=== PATIENT | female | born 1970 ===

== ENCOUNTER 2020-06-27 08:21 | Emergency (ER) | payer OTHER, SELFPAY ==
[2020-06-27 08:40] VITALS: BP 109/74; PULSE 74; RESP 16; TEMP 36.5; O2SAT 99
--- NOTE | 2020-06-27 08:57 | ED.GENADULT ---
HPI - General Adult General Chief complaint: Upper Respiratory Infection Stated complaint: poss sinus infection Time Seen by Provider: 06/27/20 08:57 Source: patient Mode of arrival: ambulatory Limitations: no limitations History of Present Illness HPI narrative: 49-year-old female patient presents to the [facility] with complaints of cold symptoms for the past 2 days. Patient states she has been running a fever but did not get higher than 100. Patient states she has also had some nasal congestion and some sinus pressure under her eyes. Denies any ear pain, body aches or chills. Denies any cough pains, sore throat, chest pain or shortness of breath. 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 Related Data Home Medications Medication Instructions Recorded Confirmed secukinumab [Cosentyx] 300 mg SUBCUT WEEKLY 06/27/20 06/27/20 Allergies Allergy/AdvReac Type Severity Reaction Status Date / Time No Known Allergies Allergy Mild Verified 06/27/20 08:43 Review of Systems Review of Systems: Narrative: CONSTITUTIONAL: Positive fever, denies chills, or sweats. EYES: Denies visual changes, redness, or discharge. ENT: Denies rhinorrhea, positive congestion, denies sore throat, or otalgia. CARDIOVASCULAR: Denies chest pain, palpitations, or edema. RESPIRATORY: Denies cough or dyspnea. GASTROINTESTINAL: Denies abdominal pain, nausea, vomiting, or diarrhea. GENITOURINARY: Denies dysuria or hematuria. SKIN: Denies rash or itching. MUSCULOSKELETAL: Denies back pain, joint pain, or myalgia. NEUROLOGIC: Denies headache, numbness, or weakness. PSYCHIATRIC: Denies anxiety or depression. [facility] Past Medical History Medical History (Updated 06/27/20 @ 09:12 by CLAUDIA Fernandez) Musculoskeletal disorder Knee laparoscopy age 14 Psoriasis Surgical History Surgical History (Updated 06/27/20 @ 08:58 by CLAUDIA Fernandez) H/O: hysterectomy Social History Social History Gender identity (if verbalized by the patient): Female Comments At the time of my signature I agree with nursing past medical history, surgical, social, and family history. There is no relevant family history pertinent to the presenting complaint. Exam Narrative: Exam Narrative: GENERAL: Well-appearing, well-nourished, and in no acute distress. HEAD: Normocephalic, atraumatic. Tenderness noted to maxillary sinuses on palpation EYES: PERRLA and EOMI. ENT: Nares with erythema and edema noted bilaterally, patent, no rhinorrhea or epistaxis. Mucous membranes moist. Posterior pharynx with no erythema, tonsillar injury, exudates or lesions present. Bilateral TMs do have a little bit of fluid behind them and the canals are very narrow. NECK: Supple. No lymphadenopathy CHEST: Clear to auscultation. No respiratory distress. Patient able talk in clear complete sentences. HEART: Regular rate and rhythm. No murmur heard. Normal peripheral pulses. ABDOMEN: Soft, nontender, nondistended, normal active bowel sounds. EXTREMITIES: Normal range of motion. No edema. SKIN: Warm, dry, no rash. NEURO: No focal deficits. Alert and oriented x3. Course Reevaluation(s) Reevaluation #1: Reevaluated patient after her flu had resulted. Discussed with her that her flu test today is negative. Discussed with her that we will send her for Covid testing and I will fax order over to the hospital. Discussed with her I will send her home with a daily antihistamine and a nasal steroid to help with her symptoms and she should continue to treat yourself with Tylenol, ibuprofen for any body aches, fevers or chills. Discussed with patient she needs to increase her fluid and get plenty of rest. Discussed with patient she will need to refer to her workplace policy or the health department on when she can return to work safely despite having a negative or positive result. Patient verbali
== END 2020-06-27 09:25 | disposition home or self-care (01) ==
PROVIDERS: Emergency Provider Nurse Practitioner Family; PCP Internal Medicine
DX: J00 Acute nasopharyngitis [common cold] (principal); J01.90 Acute sinusitis, unspecified; J06.9 Acute upper respiratory infection, unspecified; Z20.828 Contact with and (suspected) exposure to other viral communicable diseases
CPT/HCPCS: 87804; 99213; G0463

== ENCOUNTER 2020-06-28 06:54 | Outpatient (NON) | payer BC, SELFPAY ==
[2020-06-29 13:09] LABS: SARS-CoV-2 RNA PCR Positive
== END 2020-06-28 06:55 ==
LOC: ANHCOVIDDT 06:56
PROVIDERS: PCP Internal Medicine; Visit Provider Nurse Practitioner Family
DX: Z20.828 Contact with and (suspected) exposure to other viral communicable diseases (principal); J06.9 Acute upper respiratory infection, unspecified
CPT/HCPCS: 87635; C9803; U0003